=== PATIENT | female | born 1985 | race American Indian/Alaskan Native ===

== ENCOUNTER 2017-03-13 12:29 | Emergency (ER) | payer SELFPAY ==
[2017-03-13 12:51] VITALS: BP 135/84
--- NOTE | 2017-03-13 13:16 | Emergency Department Report ---
ED Medical Clearance HPI - General Chief complaint: Medical Clearance Stated complaint: CO AND OTHER SYMPTOMS Time Seen by Provider: 03/13/17 12:49 Source: patient Mode of arrival: Ambulatory - History of Present Illness Initial comments: Pt reports recently discovered gas leak in apt where they have resided for 4 months. Wants to get her and kids checked out. Asymptomatic. Complaint: medical clearance request -: Gradual, month(s) Reason for Medical Clearance: other Place: home Traumatic Symptoms: denies traumatic injury Associated Symptoms: denies other symptoms Treatments Prior to Arrival: none Home medications: Previous Rx's Medication Instructions Recorded Last Taken Type Docusate Sodium [Colace] 100 mg PO BID #60 capsule 03/14/14 Unknown Rx Sulfamethoxazole/Trimethoprim 1 each PO BID #14 tablet 03/14/14 Unknown Rx [Bactrim Ds] Acetaminophen/Codeine 1 tab PO Q6H PRN #15 tab 03/19/14 Unknown Rx [Acetaminophen-Codeine #3 TAB] Diclofenac Dr [Voltaren Dr] 75 mg PO TID #30 tablet 03/19/14 Unknown Rx methOCARBAMOL [Robaxin] 500 mg PO Q6H PRN #14 tablet 03/19/14 Unknown Rx Allergies/Adverse reactions: Allergies Allergy/AdvReac Type Severity Reaction Status Date / Time No Known Allergies Allergy Verified 03/13/17 12:51 ED Review of Systems ROS: Stated complaint: CO AND OTHER SYMPTOMS Other details as noted in HPI Comment: All other systems reviewed and negative Constitutional: denies: chills, fever Eyes: denies: eye pain, eye discharge, vision change ENT: denies: ear pain, throat pain Respiratory: denies: cough, shortness of breath, wheezing Cardiovascular: denies: chest pain, palpitations Endocrine: no symptoms reported Gastrointestinal: denies: abdominal pain, nausea, diarrhea Genitourinary: denies: urgency, dysuria, discharge Musculoskeletal: denies: back pain, joint swelling, arthralgia Skin: denies: rash, lesions Neurological: denies: headache, weakness, paresthesias Psychiatric: denies: anxiety, depression Hematological/Lymphatic: denies: easy bleeding, easy bruising ED Past Medical Hx - Past Medical History Previous Medical History?: No - Surgical History Past Surgical History?: No - Social History Smoking Status: Never Smoker Substance Use Type: None - Medications Home Medications: Home Medications Medication Instructions Recorded Confirmed Last Taken Type Docusate Sodium [Colace] 100 mg PO BID #60 capsule 03/14/14 Unknown Rx Sulfamethoxazole/Trimethoprim 1 each PO BID #14 tablet 03/14/14 Unknown Rx [Bactrim Ds] Acetaminophen/Codeine 1 tab PO Q6H PRN #15 tab 03/19/14 Unknown Rx [Acetaminophen-Codeine #3 TAB] Diclofenac Dr [Voltaren Dr] 75 mg PO TID #30 tablet 03/19/14 Unknown Rx methOCARBAMOL [Robaxin] 500 mg PO Q6H PRN #14 tablet 03/19/14 Unknown Rx ED Physical Exam - General Limitations: No Limitations General appearance: alert, in no apparent distress - Head Head exam: Present: atraumatic, normocephalic - Eye Eye exam: Present: normal appearance, PERRL, EOMI - ENT ENT exam: Present: mucous membranes moist - Neck Neck exam: Present: normal inspection - Respiratory Respiratory exam: Present: normal lung sounds bilaterally. Absent: respiratory distress - Cardiovascular Cardiovascular Exam: Present: regular rate, normal rhythm. Absent: systolic murmur, diastolic murmur, rubs, gallop - GI/Abdominal GI/Abdominal exam: Present: soft, normal bowel sounds - Extremities Exam Extremities exam: Present: normal inspection - Back Exam Back exam: Present: normal inspection - Neurological Exam Neurological exam: Present: alert, oriented X3 - Psychiatric Psychiatric exam: Present: normal affect, normal mood - Skin Skin exam: Present: warm, dry, intact, normal color. Absent: rash ED Course Vital Signs 03/13/17 12:49 Temperature 98.8 F Pulse Rate 91 H Respiratory 16 Rate Blood Pressure 135/84 O2 Sat by Pulse 98 Oximetry ED Medical Decision Making - Lab Data carboxyhemoglobin 2.3 - Medical Decision Making Pt asymptomatic. Carboxyhemoglobin less than 3%. Advise avoiding further exposure and PCP follow up. - Differential Diagnosis co exposure, med clearance ED Disposition Clinical Impression: Exposure to gaseous substance Disposition: DC-01 TO HOME OR SELFCARE Is pt being admited?: No Condition: Good Instructions: Carbon Monoxide Exposure (ED) Referrals: PRIMARY CARE, [Primary Care Provider] - 3-5 Days Forms: Work/School Release Form(ED) Time of Disposition: 14:18
== END 2017-03-13 14:25 | disposition home or self-care (01) ==
LOC: ED 12:29
DX: Z77.098 Contact with and (suspected) exposure to other hazardous, chiefly nonmedicinal, chemicals (principal)
CPT/HCPCS: 82375; 99283